=== PATIENT | female | born 1940 | race Two or more races ===

== ENCOUNTER 2016-11-16 09:56 | Inpatient (IN) | payer MEDICARE, BC ==
[~2016-11-16] VITALS: Ht 170.2 cm; Wt 60.8 kg
--- NOTE | 2016-11-16 10:00 | NUR ---
BIB SELF FROM HOME FOR SYNCOPE X 4 TIMES THIS MORNIGN WHILE IN BED, NO FALL NO INJURY, PATIENT IS VERBALLY RESPONSIVE, A/O X4, ABLE TO AMBULATE TO BED, PLACED ON MONITOR, MD AT BEDSIDE UPON ARRIVAL, WILL CONTINUE JASMINA ONITOR CLOSELY.
[2016-11-16] MEDS ORDERED: IV SET PRIMARY 1 EA INFUS.SET MC ONE (10:10)
[2016-11-16] MEDS ORDERED: IV NS 0.9% 1,000 ML ONE (10:10)
[2016-11-16] MEDS ORDERED: ACET-868 PO (10:14)
[2016-11-16 10:25] LABS: BASOPHILS % (AUTO) 0.4 % (0.0-2.0); EOSINOPHILS # (AUTO) 0.2 /CMM (0.0-0.7); EOSINOPHILS % (AUTO) 3.3 % (0.0-6.0); HEMATOCRIT 42 % (33-45); HEMOGLOBIN 13.7 g/dL (11.5-14.8); LYMPHOCYTES # (AUTO) 1.9 /CMM (0.8-4.8); LYMPHOCYTES % (AUTO) 26.3 % (20.0-44.0); MEAN CORPUSCULAR HEMOGLOBIN 29 PG (26.0-33.0); MEAN CORPUSCULAR HGB CONC 32 g/dl (31.0-36.0); MEAN CORPUSCULAR VOLUME 90 fL (82-100); MONOCYTES # (AUTO) 0.2 /CMM (0.1-1.30); MONOCYTES % (AUTO) 2.7 % (2.0-12.0); NEUTROPHILS # (AUTO) 4.8 /CMM (1.8-8.9); NEUTROPHILS % (AUTO) 67.3 % (43.0-81.0); PLATELET COUNT (AUTO) 273 /CMM (150-450); RDW COEFFICIENT OF VARIATION 12.6 (11.5-15.0); WHITE BLOOD COUNT (AUTO) 7.1 K/uL (4.3-11.0)
[2016-11-16] MEDS ORDERED: IV NS 0.9% 1,000 ML BAG IV ONE (10:30)
[2016-11-16 10:34] LABS: CALCIUM, SERUM 9.1 mg/dL (8.5-10.1); CARBON DIOXIDE 28 mmol/L (21-32); CHLORIDE 104 mmol/L (98-107); CREATININE 0.8 mg/dL (0.6-1.3); GLUCOSE 107 mg/dL (74-106); POTASSIUM 4.1 mmol/L (3.5-5.1); SODIUM SERUM 139 mmol/L (136-145); UREA NITROGEN, BLOOD 15 mg/dL (7-18)
[2016-11-16 10:39] LABS: INR 0.9 (0.87-1.13); PROTHROMBIN TIME 9.3 SECS (9.5-12.7)
[2016-11-16 10:40] LABS: ALANINE AMINOTRANSFERASE 23 U/L (12-78); ALBUMIN 3.7 g/dL (3.4-5.0); ALKALINE PHOSPHATASE 88 U/L (46-116); ASPARTATE AMINOTRANSFERASE 43 U/L (15-37); BILIRUBIN,DIRECT 0.1 mg/dL (0.0-0.2); BILIRUBIN,TOTAL 0.4 mg/dL (0.2-1.0); TOTAL PROTEIN, SERUM 7.8 g/dL (6.4-8.2)
[2016-11-16 10:42] LABS: TROPONIN I < 0.017 ng/mL (0.00-0.056)
[2016-11-16 11:50] VITALS: BP 150/77
--- NOTE | 2016-11-16 11:50 | NUR ---
RN NOTES RECEIVED PT IN ROOM 104 FROM ER , A/Ox4, RESPIRATION EVEN AND UNLABORED, ON RA , NO SOB NOTED, ON ALLYSSA SR . NO SKIN ISSUES NOTED, PT IS AMBULATORY TO BR , SUPPORTIVE SON AT THE BEDSIDE, L AC IV SITE G 20 CDI, PT GARDENIA ANY DISTRESS AT THIS TIME, SR UP x3, CALL LIGHT WITHIN EASY REACH , CONTINUE TO MONITOR PT CLOSELY AND NOTIFY MD FOR ANY SIGNIFICANT CHANGES .
[2016-11-16 12:00] VITALS: BP 150/77
[2016-11-16 12:36] LABS: APPEARANCE,URINE Clear (CLEAR); BILIRUBIN,URINE Negative (NEGATIVE); BLOOD, URINE Trace-intact Ery/uL (NEGATIVE); COLOR,URINE Yellow (YELLOW); KETONES,URINE Negative (NEGATIVE); LEUKOCYTE ESTERASE ,URINE Negative (NEGATIVE); NITRITE, URINE Negative (NEGATIVE); PROTEIN,URINE Negative (NEGATIVE); UGLUCOSE Negative (NEGATIVE); UROBILINOGEN,URINE 0.2 EU/dL (0.2)
[2016-11-16 12:47] LABS: BACTERIA,URINE Rare /HPF (None Seen); RBC,URINE 0-2 /HPF (0-2); SQUAMOUS EPITHELIAL CELL,UR Rare /HPF (None Seen); WBC,URINE 0-2 /HPF (0-3)
[2016-11-16] MEDS ORDERED: ONDANSETRON HCL/PF 4 MG/2 ML VIAL IVP PRN (13:00)
[2016-11-16] MEDS ORDERED: ACETAMINOPHEN 325 MG TABLET PO PRN (13:00)
[2016-11-16] MEDS ORDERED: ZOLPIDEM TARTRATE 5 MG TABLET PO PRN (13:00)
[2016-11-16] MEDS ORDERED: IV SET PRIMARY PUMP SET 1 EA INFUS.SET MC ONE (13:33)
[2016-11-16] MEDS: IV NS 0.9% 1,000 ML IV PRN (13:44)
[2016-11-16 16:00] VITALS: BP 126/74
--- NOTE | 2016-11-16 16:00 | NUR ---
RN NOTES SUPINE PE=173/74 HR=97 SITTING 124/80 LD=233 STANDING 131/86 HR=97 PT IS ASYMPTOMATIC , NO DISTRESS NOTED.
[2016-11-16 16:05] VITALS: BP 124/80
[2016-11-16 16:10] VITALS: BP 131/86
--- NOTE | 2016-11-16 18:21 | NUR ---
RN NOTES PT OOB TO BR , STABLE , STATED FEELS BETTER , IV F NS AT 75CC/HR RUNNING VIA L AC LINE , SUPPORTIVE SON AT THE BEDSIDE, NO NO SIGNIFICANT CHANGES NOTED AT THIS TIME
--- NOTE | 2016-11-16 19:30 | NUR ---
RN NOTES RECEIVED PATIENT IN BED AWAKE, AO X 3, ABLE TO MAKE NEEDS KNOWN. NO ACUTE DISTRESS NOTED. DENIES ANY PAIN AT THIS TIME. DENIES DIZZINESS OR WEAKNESS. TELE READING SINUS RHYTHM HR 80. IV SITE PATENT, INTACT; IVF INFUSING ORDERED. REMINDED PATIENT TO ASK FOR ASSISTANCE WHEN USING THE BATHROOM OR AMBULATING. ON LOW BED WITH BILATERAL UPPER SIDE RAILS UP. CALL LIGHT WITHIN EASY REACH. WILL CONTINUE TO MONITOR.
[2016-11-16 20:00] VITALS: BP 118/73
[2016-11-17] VITALS: BP_SYST 109; BP_SYST 117; BP_SYST 145; BP_DIAS 79; BP_DIAS 81; BP_DIAS 83
[2016-11-17 04:00] VITALS: BP 136/79
[2016-11-17] MEDS: IV NS 0.9% 1,000 ML IV PRN ×2 (05:04→23:16)
--- NOTE | 2016-11-17 06:29 | NUR ---
RN NOTES PATIENT IN BED ASLEEP, EASILY AROUSABLE. RESPIRATIONS EVEN. NO SIGNS OF PAIN NOTED. IVF ONGOING. SAFETY PRECAUTIONS AND COMFORT MEASURES IN PLACE. WILL GIVE REPORT TO DAY SHIFT FOR CONTINUITY OF CARE.
[2016-11-17 06:33] LABS: BASOPHILS % (AUTO) 0.6 % (0.0-2.0); EOSINOPHILS # (AUTO) 0.3 /CMM (0.0-0.7); EOSINOPHILS % (AUTO) 6.2 % (0.0-6.0); HEMATOCRIT 36 % (33-45); HEMOGLOBIN 12.4 g/dL (11.5-14.8); LYMPHOCYTES # (AUTO) 1.9 /CMM (0.8-4.8); LYMPHOCYTES % (AUTO) 40.1 % (20.0-44.0); MEAN CORPUSCULAR HEMOGLOBIN 31 PG (26.0-33.0); MEAN CORPUSCULAR HGB CONC 34 g/dl (31.0-36.0); MEAN CORPUSCULAR VOLUME 90 fL (82-100); MONOCYTES # (AUTO) 0.2 /CMM (0.1-1.30); MONOCYTES % (AUTO) 4.6 % (2.0-12.0); NEUTROPHILS # (AUTO) 2.3 /CMM (1.8-8.9); NEUTROPHILS % (AUTO) 48.5 % (43.0-81.0); PLATELET COUNT (AUTO) 222 /CMM (150-450); RDW COEFFICIENT OF VARIATION 13.2 (11.5-15.0); RED BLOOD CELL COUNT(AUTO) 4.04 MIL/uL (4.0-5.2); WHITE BLOOD COUNT (AUTO) 4.8 K/uL (4.3-11.0)
[2016-11-17 06:54] LABS: CALCIUM, SERUM 8.5 mg/dL (8.5-10.1); CARBON DIOXIDE 24 mmol/L (21-32); CHLORIDE 110 mmol/L (98-107); CREATININE 0.7 mg/dL (0.6-1.3); GLUCOSE 96 mg/dL (74-106); PHOSPHORUS 3.1 mg/dL (2.5-4.9); POTASSIUM 3.8 mmol/L (3.5-5.1); SODIUM SERUM 143 mmol/L (136-145); UREA NITROGEN, BLOOD 14 mg/dL (7-18)
[2016-11-17 08:00] VITALS: BP 130/87
[2016-11-17] MEDS: PANTOPRAZOLE 40 MG TABLET.DR PO SCH (09:23)
--- NOTE | 2016-11-17 14:06 | NUR ---
PT ATE AROUND 1300. CTA TO BE DONE AROUND 1700.
[2016-11-17 16:00] VITALS: BP 119/79
[2016-11-17] MEDS ORDERED: IOHEXOL-350 100 ML VIAL IV ONE (16:23)
[2016-11-17] MEDS ORDERED: CT SWABBABLE VALVE TRANS SET 1 EA INFUS.SET MC ONE (16:23)
[2016-11-17] MEDS ORDERED: IV NS 0.9% 250 ML IV ONE (16:23)
--- NOTE | 2016-11-17 19:45 | NUR ---
MS RN NOTES RECEIVED THIS VERY PLEASANT LADY,A/O X4,BREATHING REGULAR,NOT IN ANY FORM OF DISTRESS.PRESENT IVF INFUSING WELL VIA IV PUMP AT 75ML/HR RATE.DVT PUMP IN USED FOR DVT PROPHYLAXIS.AMBULATE AT TIMES TO THE TOILET WITH ASSIST.CALL LIGHT IN REACH,NEEDS ANTICIPATED.
[2016-11-17 20:00] VITALS: BP 123/76
--- NOTE | 2016-11-17 23:16 | NUR ---
MS RN NOTES NEW IV BAG HUNG
--- NOTE | 2016-11-18 01:51 | NUR ---
MS RN NOTES SLEEPING AT THIS TIME,IVF INFUSING,DVT PUMP IN USED
[2016-11-18 04:00] VITALS: BP 129/84
[2016-11-18 06:30] VITALS: BP 129/75
--- NOTE | 2016-11-18 06:30 | NUR ---
MS MAINTENANCE SHOP WELDER NOTES: RECEIVED A 75 YO FEMALE PATIENT WHO WAS TRANSFERRED FROM [facility]. PATIENT WAS BROUGHT TO MS FLOOR VIA [id number], AOX4, ON ROOM AIR, BREATHING EVEN AND UNLABORED. PIV OVER LAC G22 INTACT AND PATENT TO FLUSH. PROVIDED FOR COMFORT AND SAFETY. ORIENTED TO UNIT. BED IN LOWEST AND LOCKED POSITION AND SIDERAILS UP X3. VS TAKEN, WNL. WILL ENDORSE TO AM RN FOR ROBBIE.
--- NOTE | 2016-11-18 06:30 | NUR ---
MS RN NOTES TRANSFERRED TO MS 2,ROOM 209-2.REPORT GIVEN TO MARKO LIANG, FOR ROBBIE.POSSIBLE D/C TO HOME TODAY.IN NO ACUTE DISTRESS
[2016-11-18 07:27] LABS: CALCIUM, SERUM 8.7 mg/dL (8.5-10.1); CARBON DIOXIDE 26 mmol/L (21-32); CHLORIDE 108 mmol/L (98-107); CREATININE 0.6 mg/dL (0.6-1.3); GLUCOSE 87 mg/dL (74-106); MAGNESIUM 2.1 mg/dL (1.8-2.4); PHOSPHORUS 3.7 mg/dL (2.5-4.9); POTASSIUM 3.9 mmol/L (3.5-5.1); SODIUM SERUM 144 mmol/L (136-145); UREA NITROGEN, BLOOD 13 mg/dL (7-18)
--- NOTE | 2016-11-18 07:30 | NUR ---
MS RN OPENING NOTE PATIENT IS ALERT AN DORIENTED x4. NO PAIN AT THIS TIME. NO SOB OR DISTRESS NOTED. CALL LIGHT WITHIN REACH. SAFETY MEASURES IMPLEMENTED. IV INTACT AND PATENT NO REDNESS OR SWELLING NOTED. ABLE TO COMMUNICATE NEEDS. WILL CONTINUE TO MONITOR
[2016-11-18 08:00] VITALS: BP 129/75
[2016-11-18] MEDS: PANTOPRAZOLE 40 MG TABLET.DR PO SCH (08:16)
[2016-11-18 08:17] LABS: BASOPHILS % (AUTO) 0.6 % (0.0-2.0); EOSINOPHILS # (AUTO) 0.3 /CMM (0.0-0.7); EOSINOPHILS % (AUTO) 6.3 % (0.0-6.0); HEMATOCRIT 37 % (33-45); HEMOGLOBIN 12.6 g/dL (11.5-14.8); LYMPHOCYTES # (AUTO) 1.9 /CMM (0.8-4.8); LYMPHOCYTES % (AUTO) 35.7 % (20.0-44.0); MEAN CORPUSCULAR HEMOGLOBIN 31 PG (26.0-33.0); MEAN CORPUSCULAR HGB CONC 34 g/dl (31.0-36.0); MEAN CORPUSCULAR VOLUME 90 fL (82-100); MONOCYTES # (AUTO) 0.2 /CMM (0.1-1.30); MONOCYTES % (AUTO) 4.1 % (2.0-12.0); NEUTROPHILS % (AUTO) 53.3 % (43.0-81.0); PLATELET COUNT (AUTO) 226 /CMM (150-450); RDW COEFFICIENT OF VARIATION 12.5 (11.5-15.0); RED BLOOD CELL COUNT(AUTO) 4.07 MIL/uL (4.0-5.2); WHITE BLOOD COUNT (AUTO) 5.4 K/uL (4.3-11.0)
[2016-11-18] MEDS ORDERED: ASPI81TA2 PO (09:56)
--- NOTE | 2016-11-18 11:47 | NUR ---
MS HUMIDIFIER ATTENDANT OTE PATIENT IS ALERT AND ORIENTED x4. NO PAIN AT THIS TIME. NO SOB OR DISTRESS NOTED. ALL DUE MEDIATION GIVEN ORDERED. ALL BELONGINGS WITH PATIENT AND SON. ALL DISCAHRGE INSTRUCTIONS GIVEN TO PATIENT AND SON. ABLE TO VERBALIZE INSTRUCTIONS. LEFT PRIVATE CAR WITH SON.
== END 2016-11-18 10:00 | disposition home or self-care (01) | DRG 74 ==
LOC: ER 09:59 → TELE1 11:42 → TELE 12:25 → TELE1 12:26 → MEDSG1 11-17 11:17 → MEDSG2 11-18 05:49
PROVIDERS: ADMIT Internal Medicine; ATTEND Internal Medicine
DX: G90.8 Other disorders of autonomic nervous system (principal); E86.0 Dehydration; M06.9 Rheumatoid arthritis, unspecified; M19.90 Unspecified osteoarthritis, unspecified site; H81.10 Benign paroxysmal vertigo, unspecified ear; Z96.641 Presence of right artificial hip joint; Z91.81 History of falling
CPT/HCPCS: 36415; 70450-TC; 70496-TC; 70498-TC; 71010-TC; 80048-TC; 80076-TC; 81000-TC; 83735-TC; 84100-TC; 84484-TC; 85025-TC; 85730-TC; 86850-TC; 87040-TC; 87081-TC; 93307-TC; A4606; J7030; J7050; Q9967; Z7610

== ENCOUNTER 2020-03-19 02:10 | Emergency (ER) | payer MEDICARE, BC ==
[~2020-03-19] VITALS: Ht 170.2 cm; Wt 64.4 kg
[~2020-03-19 02:10] MED LIST: ACET-868 PO; ASPI-1169 PO
[2020-03-19] MEDS ORDERED: MORPHINE SULFATE INJ 2 MG/ML DISP.SYRIN ONE ×2 (02:22→03:27)
--- NOTE | 2020-03-19 02:23 | NUR ---
C/O LEFT SHOULDER PAIN WITH SWELLING SINCE THE March S/P FLU AND PNEUMONIA VACCINE. PATIENT IS AAOX4. NO SOB. BREATHING EVENLY AND UNLABORED ON ROOM AIR. CONNECTED TO THE MONITOR. PATIENT IS AMBULATORY WITH A STEADY GAIT.
[2020-03-19] MEDS ORDERED: MORPHINE SULFATE INJ 2 MG/ML DISP.SYRIN IV ONE ×2 (02:30→04:00)
--- NOTE | 2020-03-19 02:35 | NUR ---
BLOOD COLLECTED AND SENT TO LAB
[2020-03-19 02:43] LABS: BASOPHILS % (AUTO) 0.5 % (0.0-2.0); EOSINOPHILS % (AUTO) 2.5 % (0.0-6.0); HEMATOCRIT 40 % (33-45); HEMOGLOBIN 13.7 g/dL (11.5-14.8); LYMPHOCYTES # (AUTO) 1.7 /CMM (0.8-4.8); MEAN CORPUSCULAR HGB CONC 34 g/dl (31.0-36.0); MEAN CORPUSCULAR VOLUME 97 fL (82-100); MONOCYTES # (AUTO) 0.4 /CMM (0.1-1.30); MONOCYTES % (AUTO) 5.5 % (2.0-12.0); NEUTROPHILS # (AUTO) 5.6 /CMM (1.8-8.9); NEUTROPHILS % (AUTO) 70.5 % (43.0-81.0); PLATELET COUNT (AUTO) 243 /CMM (150-450); RED BLOOD CELL COUNT(AUTO) 4.12 MIL/uL (4.0-5.2)
[2020-03-19 02:52] LABS: C-REACTIVE PROTEIN 5.2 mg/dL (0.0-0.9)
[2020-03-19 02:54] LABS: ALANINE AMINOTRANSFERASE 58 U/L (12-78); ALBUMIN 3.9 g/dL (3.4-5.0); ALKALINE PHOSPHATASE 79 U/L (46-116); ASPARTATE AMINOTRANSFERASE 71 U/L (15-37); BILIRUBIN,TOTAL 1.3 mg/dL (0.2-1.0); CALCIUM, SERUM 9.6 mg/dL (8.5-10.1); CARBON DIOXIDE 26 mmol/L (21-32); CHLORIDE 103 mmol/L (98-107); CREATININE 0.8 mg/dL (0.6-1.3); GLUCOSE 125 mg/dL (74-106); POTASSIUM 3.9 mmol/L (3.5-5.1); SODIUM SERUM 138 mmol/L (136-145); TOTAL PROTEIN, SERUM 7.6 g/dL (6.4-8.2); UREA NITROGEN, BLOOD 17 mg/dL (7-18)
[2020-03-19] MEDS ORDERED: DEXAMETHASONE SOD PHOSPHATE 10 MG/ML VIAL IV ONE (04:00)
[2020-03-19] MEDS ORDERED: DEXAMETHASONE SOD PHOSPHATE 10 MG/ML VIAL ONE (04:02)
--- NOTE | 2020-03-19 04:11 | NUR ---
SON CALLED, PATIENT WANTS TO WAIT IN THE WAITING ROOM.
--- NOTE | 2020-03-19 04:12 | NUR ---
Patient discharged to home in stable condition. Written and verbal after care instructions given. Patient verbalizes understanding of instruction.
--- NOTE | 2020-03-19 04:12 | NUR ---
PRESCRIPTIONS CODEINE PROVIDED. INSTRUCTED NOT TO TAKE MEDICATION WITH OTHER NARCOTICS, ALCOHOL, NOR TYLENOL. PATIENT INSTRUCTED NOT TO OPERATE BEHIND MACHINERY WHILE TAKING MEDICATION.
[2020-03-19 04:35] VITALS: BP 127/65
== END 2020-03-19 04:36 | disposition home or self-care (01) ==
LOC: ER 02:10
DX: M13.812 Other specified arthritis, left shoulder (principal); M25.412 Effusion, left shoulder; M06.9 Rheumatoid arthritis, unspecified; Z98.890 Other specified postprocedural states; Z79.82 Long term (current) use of aspirin
CPT/HCPCS: 36415; 73030; 80053; 85025; 85652; 86140; 96374; 96375; 96376; 99284; J1100; J2270 ×2

== ENCOUNTER 2021-10-18 09:51 | Emergency (ER) | payer MEDICARE, BC ==
[~2021-10-18] VITALS: Ht 170.2 cm; Wt 63.5 kg
--- NOTE | 2021-10-18 09:55 | NUR ---
DOG BITE,RIGHT FOREARM,SUSTAINED WHILE PETTING SOMEONE'S BLIND DOG. AMBULATORY, AAOX4.
[2021-10-18 10:00] VITALS: BP 117/88
--- NOTE | 2021-10-18 10:00 | NUR ---
AT BED SIDE
[2021-10-18] MEDS ORDERED: TDAP [DIPH/PERTUSSIS/TET] 0.5 ML VIAL IM ONE ×2 (10:29→10:30)
--- NOTE | 2021-10-18 10:35 | NUR ---
X-RAY TECH AT BED SIDE
[2021-10-18] MEDS ORDERED: AMOX-430 PO (11:23)
== END 2021-10-18 11:30 | disposition home or self-care (01) ==
LOC: ER 10:01
DX: S61.551A Open bite of right wrist, initial encounter (principal); M19.90 Unspecified osteoarthritis, unspecified site; Z96.641 Presence of right artificial hip joint; Z79.899 Other long term (current) drug therapy; W54.0XXA Bitten by dog, initial encounter; Y93.K1 Activity, walking an animal; Y92.89 Other specified places as the place of occurrence of the external cause; Y99.8 Other external cause status
CPT/HCPCS: 73110; 90471; 90715; 99283; A6403